=== PATIENT | male | born 1940 | race African-American/Black ===

== ENCOUNTER 2017-05-04 23:04 | Inpatient (IN) | payer MEDICARE, MEDICAID ==
[~2017-05-04] VITALS: Ht 182.9 cm; Wt 102.1 kg
[~2017-05-04 23:04] MED LIST: DABI150C PO; DEXL60CA3 PO; DRON400T PO; FLUT1DIS INH; LISI40TA4 PO; VIC GT; amlodipine
[2017-05-05] VITALS (45 sets, daily range): BP systolic 109–169; BP diastolic 57–114
[2017-05-05] MEDS ORDERED: PANTOPRAZOLE SODIUM 40 MG/VIAL IV STA (00:06)
[2017-05-05] MEDS ORDERED: ONDANSETRON HCL 4MG/2ML VIAL IV STA (00:06)
[2017-05-05 00:27] LABS: RED BLOOD CELL COUNT 4.92 mill/uL (4.7-6.1)
[2017-05-05 00:28] LABS: BASOPHILS % 0.8 % (0.0-2.0); EOSINOPHILS % 2.9 % (0.0-5.0); HEMATOCRIT. 40.9 % (42.0-52.0); HEMOGLOBIN. 13.5 g/dL (14.0-18.0); MEAN CORPUSCULAR HEMOGLOBIN 27.4 pg (28.0-32.0); MEAN PLATELET VOLUME 9.5 fl (7.4-10.4); MONOCYTES % 7.4 % (2.0-8.0); NEUTROPHILS % 71.9 % (40.0-76.0); PLATELET 143 x1000/uL (130-400)
[2017-05-05 00:32] LABS: CHLORIDE 107 mEq/L (98-107)
[2017-05-05 00:36] LABS: INR 1.1; PARTIAL THROMBOPLASTIN TIME 32.9 sec (23.4-31.0); PROTHROMBIN TIME 11.7 sec (9.4-11.6)
[2017-05-05] MEDS ORDERED: SODIUM CHLORIDE 0.9% 1,000 ML IV ONE (00:36)
[2017-05-05 00:41] LABS: CARBON DIOXIDE 25 mEq/L (21-32)
[2017-05-05] MEDS ORDERED: ONDANSETRON HCL 4MG/2ML VIAL IV PRN (02:00)
[2017-05-05] MEDS ORDERED: DIPHENHYDRAMINE 50MG/ML VIAL IV PRN (02:00)
[2017-05-05] MEDS ORDERED: ACETAMINOPHEN 325MG TABLET PO PRN (02:00)
[2017-05-05] MEDS ORDERED: CLONIDINE 0.1MG TABLET PO PRN (02:00)
[2017-05-05] MEDS ORDERED: BUSP10TA3 PO (03:03)
[2017-05-05] MEDS ORDERED: ASPI-1159 PO (03:03)
[2017-05-05] MEDS ORDERED: TAMS0.4C31 PO (03:03)
[2017-05-05] MEDS ORDERED: CARV6.2548 PO (03:03)
[2017-05-05] MEDS ORDERED: COMBIVENT INH (03:03)
[2017-05-05] MEDS ORDERED: FAMO20TA8 PO (03:03)
[2017-05-05] MEDS: SODIUM CHLORIDE 0.9% 1,000 ML IV SCH ×3 (03:42→21:12)
[2017-05-05 07:53] LABS: HEMATOCRIT 37.9 % (42.0-52.0); HEMOGLOBIN 12.5 g/dL (14.0-18.0); MEAN CORPUSCULAR HEMOGLOBIN 27.5 pg (28.0-32.0); MEAN CORPUSCULAR VOLUME 83.5 fL (80.0-94.0); PLATELET 133 x1000/uL (130-400); RED BLOOD CELL COUNT 4.55 mill/uL (4.7-6.1)
[2017-05-05] MEDS ORDERED: SODIUM CHLORIDE 0.9% 10ML VIAL ONE (11:59)
[2017-05-05] MEDS ORDERED: SIMETHICONE 40 MG/0.6 ML 30ML ONE ×2 (11:59→13:32)
[2017-05-05] MEDS ORDERED: IPRATROPIUM/ALBUTEROL 0.5-3(2.5)MG/3ML NEB HHN PRN (12:15)
[2017-05-05] MEDS: PANTOPRAZOLE SODIUM 40 MG/VIAL IV SCH ×2 (12:49→23:38)
[2017-05-05] MEDS ORDERED: PNEUMOCOCCAL 23-VAL P-SAC VAC 0.5 ML IM ONE (13:30)
[2017-05-05] MEDS ORDERED: MIDAZOLAM HCL 5 MG/5 ML VIAL ONE (13:32)
[2017-05-05] MEDS ORDERED: FENTANYL CITRATE/PF 50MCG/ML 2ML VIAL ONE (13:32)
[2017-05-05] MEDS ORDERED: MIDAZOLAM HCL 2 MG/2 ML VIAL IV PRN (13:37)
[2017-05-05] MEDS ORDERED: FENTANYL CITRATE/PF 50MCG/ML 2ML VIAL IV PRN (13:37)
[2017-05-05] MEDS ORDERED: EPINEPHRINE 0.1MG/ML (1:10,000) 10ML SYR ONE (13:49)
[2017-05-05] MEDS: SUCRALFATE 1 G/10 ML UDC PO SCH ×2 (17:24→21:13)
[2017-05-06] VITALS (16 sets, daily range): BP systolic 109–143; BP diastolic 57–84
[2017-05-06] MEDS ORDERED: BUSPIRONE HCL 10MG TABLET PO PRN (05:45)
[2017-05-06] MEDS ORDERED: FENTANYL CITRATE/PF 50MCG/ML 2ML VIAL IV PRN (05:45)
[2017-05-06] MEDS: SUCRALFATE 1 G/10 ML UDC PO SCH ×4 (05:48→20:59)
[2017-05-06] MEDS: SODIUM CHLORIDE 0.9% 1,000 ML IV SCH ×2 (08:00→18:00)
[2017-05-06] MEDS: CARVEDILOL 6.25 MG TABLET PO SCH ×2 (08:43→21:00)
[2017-05-06] MEDS: TAMSULOSIN HCL 0.4MG SR CAPSULE PO SCH (08:44)
[2017-05-06] MEDS: ASPIRIN 81MG EC TABLET PO SCH (08:44)
[2017-05-06] MEDS: LISINOPRIL 40MG TABLET PO SCH (08:45)
[2017-05-06] MEDS ORDERED: FAMOTIDINE 20MG TABLET PO SCH (09:00)
[2017-05-06] MEDS: PANTOPRAZOLE SODIUM 40 MG/VIAL IV SCH ×2 (11:31→20:14)
[2017-05-07] VITALS: BP 129/75
[2017-05-07 04:00] VITALS: BP 122/72
[2017-05-07] MEDS: SODIUM CHLORIDE 0.9% 1,000 ML IV SCH (04:00)
[2017-05-07] MEDS: SUCRALFATE 1 G/10 ML UDC PO SCH ×4 (06:50→20:35)
[2017-05-07 07:52] VITALS: BP 113/61
[2017-05-07] MEDS: TAMSULOSIN HCL 0.4MG SR CAPSULE PO SCH (08:45)
[2017-05-07] MEDS: PANTOPRAZOLE SODIUM 40 MG/VIAL IV SCH ×2 (08:45→20:36)
[2017-05-07] MEDS: ASPIRIN 81MG EC TABLET PO SCH (08:45)
[2017-05-07] MEDS: LISINOPRIL 40MG TABLET PO SCH (08:45)
[2017-05-07] MEDS: CARVEDILOL 6.25 MG TABLET PO SCH ×2 (08:45→20:38)
[2017-05-07 12:00] VITALS: BP 108/73
[2017-05-07 15:24] VITALS: BP 117/77
[2017-05-07 19:10] LABS: HEMATOCRIT 33.9 % (42.0-52.0); HEMOGLOBIN 11.4 g/dL (14.0-18.0); MEAN CORPUSCULAR HEMOGLOBIN 28.1 pg (28.0-32.0); MEAN CORPUSCULAR VOLUME 83.4 fL (80.0-94.0); PLATELET 111 x1000/uL (130-400); RED BLOOD CELL COUNT 4.07 mill/uL (4.7-6.1); RED CELL DISTRIBUTION WIDTH 13.8 % (11.6-14.6)
[2017-05-07 20:00] VITALS: BP 116/74
[2017-05-08] VITALS: BP 125/74
[2017-05-08 04:00] VITALS: BP 101/61
[2017-05-08 06:32] LABS: HEMOGLOBIN 10.9 g/dL (14.0-18.0); MEAN CORPUSCULAR HEMOGLOBIN 27.4 pg (28.0-32.0); MEAN CORPUSCULAR VOLUME 82.9 fL (80.0-94.0); PLATELET 113 x1000/uL (130-400); RED BLOOD CELL COUNT 3.98 mill/uL (4.7-6.1); RED CELL DISTRIBUTION WIDTH 13.6 % (11.6-14.6)
[2017-05-08] MEDS: SUCRALFATE 1 G/10 ML UDC PO SCH ×2 (06:40→11:49)
[2017-05-08 08:00] VITALS: BP 106/62
[2017-05-08] MEDS: TAMSULOSIN HCL 0.4MG SR CAPSULE PO SCH (08:50)
[2017-05-08] MEDS: ASPIRIN 81MG EC TABLET PO SCH (08:50)
[2017-05-08] MEDS: PANTOPRAZOLE SODIUM 40 MG/VIAL IV SCH (08:50)
[2017-05-08] MEDS: CARVEDILOL 6.25 MG TABLET PO SCH (08:50)
[2017-05-08] MEDS: LISINOPRIL 40MG TABLET PO SCH (08:51)
[2017-05-08 12:00] VITALS: BP 114/64
[2017-05-08 14:37] VITALS: BP 114/64
== END 2017-05-08 16:35 | disposition home or self-care (01) | DRG 369 ==
LOC: ER 23:04 → MICUNO 05-05 00:41 → ENRESERV 05-05 02:01 → 5WST 05-06 05:20
PROVIDERS: ADMIT Internal Medicine; ATTEND Internal Medicine
PROC: 3E0G8GC Introduction of Other Therapeutic Substance into Upper GI, Via Natural or Artificial Opening Endoscopic (ICD-10-PCS; 2017-05-05)
PROC: 0W3P8ZZ Control Bleeding in Gastrointestinal Tract, Via Natural or Artificial Opening Endoscopic (ICD-10-PCS; principal; 2017-05-05 14:00)
DX: K22.6 Gastro-esophageal laceration-hemorrhage syndrome (principal); D68.9 Coagulation defect, unspecified; I48.0 Paroxysmal atrial fibrillation; J44.9 Chronic obstructive pulmonary disease, unspecified; I10 Essential (primary) hypertension; E78.00 Pure hypercholesterolemia, unspecified; K44.9 Diaphragmatic hernia without obstruction or gangrene; I25.10 Atherosclerotic heart disease of native coronary artery without angina pectoris; E78.5 Hyperlipidemia, unspecified; I44.0 Atrioventricular block, first degree; D64.9 Anemia, unspecified; Z79.899 Other long term (current) drug therapy; Z79.82 Long term (current) use of aspirin; Z95.1 Presence of aortocoronary bypass graft; Z95.0 Presence of cardiac pacemaker; Z79.01 Long term (current) use of anticoagulants
CPT/HCPCS: 36415; 71010; 80053; 83690; 85025; 85027; 85576; 85610; 85730; 86850; 86900; 90732; 93005; 94640; 96361; 96374; 96375; 99291; A4216; C9113; J0171; J2250; J2405; J3010; J7030; J7620